=== PATIENT | male | born 1960 | race African-American/Black ===

== ENCOUNTER 2019-10-30 17:45 | Emergency (ER) | payer MEDICAID, OTHER ==
[~2019-10-30] VITALS: Ht 172.7 cm; Wt 101.0 kg
[2019-10-31] MEDS ORDERED: MAGNESIUM/ALUMINUM HYDROXIDE/SIMETHICONE 30ML UDC PO ONE (00:15)
[2019-10-31] MEDS ORDERED: FAMOTIDINE 20MG/2ML VIAL IV ONE (00:15)
[2019-10-31] MEDS ORDERED: ONDANSETRON HCL 4MG/2ML INJ IV ONE (00:15)
[2019-10-31] MEDS ORDERED: VISCOUS LIDOCAINE 2% 15 ML UDC MM ONE (00:15)
[2019-10-31 01:53] VITALS: BP 144/88
== END 2019-10-31 01:55 | disposition home or self-care (01) ==
LOC: ER 18:10
DX: R12 Heartburn (principal); I10 Essential (primary) hypertension; F17.210 Nicotine dependence, cigarettes, uncomplicated; Z98.890 Other specified postprocedural states
CPT/HCPCS: 36415; 84484; 93005; 96374; 96375; 99285; J2405; J3490

== ENCOUNTER 2019-11-02 13:23 | Emergency (ER) | payer MEDICAID ==
[~2019-11-02] VITALS: Ht 177.8 cm; Wt 90.0 kg
[2019-11-02 19:00] LABS: CLARITY URINE CLEAR (CLEAR); COLOR URINE YELLOW (YELLOW); KETONES URINE 1+ (NEGATIVE); LEUKOCYTE ESTERASE URINE TRACE (NEGATIVE); NITRITE URINE NEGATIVE (NEGATIVE); OCCULT BLOOD URINE NEGATIVE (NEGATIVE); PH URINE 5.5 (4.5-8.0); PROTEIN URINE 2+ (NEGATIVE); SPECIFIC GRAVITY URINE 1.017 (1.005-1.030)
[2019-11-02] MEDS ORDERED: ONDANSETRON 4MG ODT PO STA (19:01)
[2019-11-02] MEDS ORDERED: MECLIZINE 25MG TABLET PO ONE (19:15)
[2019-11-02 19:24] LABS: BASOPHILS % 0.6 % (0.0-2.0); EOSINOPHILS % 0.4 % (0.0-5.0); HEMATOCRIT. 52.8 % (42.0-52.0); HEMOGLOBIN. 18.4 g/dL (14.0-18.0); LYMPHOCYTES % 25.8 % (20.0-50.0); MEAN CORPUSCULAR HEMOGLOBIN 32.4 pg (28.0-32.0); MEAN CORPUSCULAR VOLUME 92.7 fL (80.0-94.0); MONOCYTES % 13.8 % (2.0-8.0); NEUTROPHILS % 59.4 % (40.0-76.0); PLATELET 238 x1000/uL (130-400); RED CELL DISTRIBUTION WIDTH 13.5 % (11.6-14.6)
[2019-11-02 19:29] LABS: CHLORIDE 97 mEq/L (98-107)
[2019-11-02 21:03] VITALS: BP 150/90
== END 2019-11-02 21:04 | disposition home or self-care (01) ==
LOC: ER 13:37
DX: R42 Dizziness and giddiness (principal); R91.8 Other nonspecific abnormal finding of lung field; I10 Essential (primary) hypertension
CPT/HCPCS: 36415; 70450; 71045; 80053; 81003; 83690; 84484; 85025; 93005; 99285; J8597; Q0162

== ENCOUNTER 2021-01-22 07:30 | Emergency (ER) | payer MEDICAID ==
[~2021-01-22] VITALS: Ht 172.7 cm; Wt 91.0 kg
[2021-01-22] MEDS ORDERED: MECLIZINE 12.5MG TABLET PO ONE (08:15)
[2021-01-22] MEDS ORDERED: ONDANSETRON HCL 4MG/2ML INJ IV ONE (08:15)
[2021-01-22] MEDS ORDERED: LORAZEPAM 2MG/ML CPJ IV ONE (08:15)
[2021-01-22 08:35] LABS: BASOPHILS % 0.6 % (0.0-2.0); EOSINOPHILS % 0.8 % (0.0-5.0); HEMOGLOBIN. 17.2 g/dL (14.0-18.0); LYMPHOCYTES % 34.3 % (20.0-50.0); MEAN CORPUSCULAR HEMOGLOBIN 33.2 pg (28.0-32.0); MEAN CORPUSCULAR VOLUME 94.8 fL (80.0-94.0); MEAN PLATELET VOLUME 7.9 fl (7.4-10.4); MONOCYTES % 12.3 % (2.0-8.0); PLATELET 230 x1000/uL (130-400); RED BLOOD CELL COUNT 5.17 mill/uL (4.7-6.1); RED CELL DISTRIBUTION WIDTH 12.5 % (11.6-14.6)
[2021-01-22 08:47] LABS: CHLORIDE 93 mEq/L (98-107)
[2021-01-22 08:52] LABS: CLARITY URINE CLEAR (CLEAR); COLOR URINE DARK YELLOW (YELLOW); KETONES URINE NEGATIVE (NEGATIVE); LEUKOCYTE ESTERASE URINE NEGATIVE (NEGATIVE); NITRITE URINE NEGATIVE (NEGATIVE); OCCULT BLOOD URINE NEGATIVE (NEGATIVE); PH URINE 5.5 (4.5-8.0); PROTEIN URINE 2+ (NEGATIVE); SPECIFIC GRAVITY URINE 1.017 (1.005-1.030)
[2021-01-22] MEDS ORDERED: POTASSIUM CHLORIDE 20MEQ TABLET SR PO ONE (11:00)
[2021-01-22] MEDS ORDERED: KCL 20MEQ/100ML PREMIX 100 ML IV ONE (11:00)
[2021-01-22] MEDS ORDERED: MECL-159 MT (11:25)
[2021-01-22] MEDS ORDERED: ONDA4TAB11 PO (11:27)
[2021-01-22 13:52] VITALS: BP 141/200
== END 2021-01-22 14:21 | disposition home or self-care (01) ==
LOC: ER 07:30
DX: E87.6 Hypokalemia (principal); R42 Dizziness and giddiness; I10 Essential (primary) hypertension; Z98.890 Other specified postprocedural states; Z79.899 Other long term (current) drug therapy
CPT/HCPCS: 36415; 70551; 80053; 81003; 85025; 93005; 96365; 96375; 99285; J2060; J2405; J3480; J7040; J8597; Z7610